=== PATIENT | female | born 2005 | race Caucasian/White ===

== ENCOUNTER 2023-12-08 19:40 | Inpatient (IN) | payer OTHER ==
[~2023-12-08] VITALS: Ht 177.8 cm; Wt 118.2 kg
[2023-12-08] VITALS (7 sets, daily range): BP systolic 127–140; BP diastolic 76–86; PULSE 88–107; TEMP 98–98.3
[~2023-12-08 19:40] MED LIST: MACROBID 1100 MG/CAP PO
--- NOTE | 2023-12-08 19:50 | NUR ---
Ambulatory to unit for labor assessment, accompanied by boyfriend. Oriented to room, monitor, plan of care. Pt reports "I've been having contractions for over 2 days, and I haven't been able to sleep." Pt reports "I was in the office on Thursday and he swept my membranes" When asked about LOF or vaginal bleeding, Pt reports "I had a gush of fluids when I was in the shower but I wasn't sure since I was in the shower. It feels like every time I have a ctx more fluid comes out. " Amniotrace negative with no color change. SVE 3-4 with small amount yellow/green tinged fluid noted on exam glove. Amniotrace to fluid on glove equivocal.
--- NOTE | 2023-12-08 20:35 | NUR ---
Off monitor, up to move around room until orders obtained.
[2023-12-08] MEDS ORDERED: LR 1,000 ML IV SCH (21:15)
[2023-12-08] MEDS ORDERED: LR & Oxytocin 500 ML IV SCH (21:15)
--- NOTE | 2023-12-08 21:30 | NUR ---
Pt to bathroom before being put back on the monitor.
[2023-12-08] MEDS ORDERED: Gentamicin/Sodium Chloride 100 ML IV ONE (22:15)
--- NOTE | 2023-12-08 22:18 | NUR ---
Pt requesting epidural. Anesthesia notified.
[2023-12-08 22:31] LABS: BASO % 0.3 % (0.0-2.0); EOS # 0.1 K/mm3 (0.0-0.7); EOS % 0.5 % (0.0-4.0); GRAN # 8.9 K/mm3 (1.4-6.5); GRAN % 74.9 % (42.2-75.2); HEMOGLOBIN 11.2 g/dl (12.0-15.0); LYMPH # 1.8 K/mm3 (1.2-3.4); LYMPH % 14.9 % (20.0-51.0); MEAN CELL VOLUME 83 fl (80.0-95.0); MEAN CORPUSCULAR HEMOGLOBIN 26 pg (26-32); MEAN CORPUSCULAR HGB CONC 32 g/dl (33.0-37.0); MEAN PLATELET VOLUME 9.1 fl (7.4-10.4); MONO % 8.3 % (1.7-9.3); PLATELET COUNT 244 K/mm3 (130-400); RED BLOOD COUNT 4.28 M/mm3 (4.10-5.30); REDCELL DISTRIBUTION WIDTH-CV 14.1 % (11.5-14.5)
[2023-12-08 22:32] LABS: HEMATOCRIT 35.6 % (35.0-45.0)
[2023-12-08] MEDS ORDERED: ROPivacaine PF 0.2% 200 ML IV ONE (22:37)
[2023-12-08] MEDS ORDERED: Ondansetron 4 MG/2 ML VIAL IV PRN (22:45)
[2023-12-08] MEDS ORDERED: diphenhydrAMINE 25 MG CAP PO PRN (22:45)
[2023-12-08] MEDS ORDERED: ePHEDrine 50 MG/10 ML VIAL IV PRN (22:45)
[2023-12-08] MEDS ORDERED: Naloxone 0.4 MG/ML VIAL IV PRN (22:45)
[2023-12-08] MEDS ORDERED: diphenhydrAMINE 50 MG/ML 1 ML VIAL IV PRN (22:45)
--- NOTE | 2023-12-08 22:45 | NUR ---
[employer] into room, for epidural placement. See anesthesia record. Pt assisted to sit on edge of bed. EFM tracing maternal heart rate.
[2023-12-09] VITALS (43 sets, daily range): BP systolic 113–157; BP diastolic 56–92; PULSE 77–120; TEMP 98.1–98.8
--- NOTE | 2023-12-09 02:50 | NUR ---
Pt reports 'large gush of fluid' Large amount of yellow/light green fluid without sediment noted on chux, SVE as noted.
[2023-12-09] MEDS ORDERED: Gentamicin/Sodium Chloride 50 ML IV SCH ×2 (04:00→06:17)
[2023-12-09] MEDS ORDERED: Witch Hazel 50% Pads Bulk TUB TP PRN (09:45)
[2023-12-09] MEDS ORDERED: Ibuprofen 600 MG TAB PO SCH ×2 (09:45→12:45)
[2023-12-09] MEDS ORDERED: Naloxone 0.4 MG/ML VIAL IV PRN (09:45)
[2023-12-09] MEDS ORDERED: Phenylephrine/Mineral Oil/Petrolatum 57 GM TUBE RC PRN (09:45)
[2023-12-09] MEDS ORDERED: Magnes Hydrox (MOM) 80 MG/ML 30 ML CUP PO PRN (09:45)
[2023-12-09] MEDS ORDERED: oxyCODONE 5 MG TAB PO PRN (09:45)
[2023-12-09] MEDS ORDERED: Acetaminophen 500 MG TAB PO SCH ×2 (09:45→12:45)
[2023-12-09] MEDS ORDERED: Loratadine 10 MG TAB PO PRN (09:45)
[2023-12-09] MEDS ORDERED: Measles/Mumps/Rubella Virus Vaccine Live w Diluent 0.5 ML VIAL SQ SCH (09:45)
[2023-12-09] MEDS ORDERED: Mag/Al Hydrox/Simeth Susp 30 ML CUP PO PRN (09:45)
--- NOTE | 2023-12-09 10:45 | NUR ---
0640 SVE PER THIS RN /0.DR LEWIS NOTIFIED.THIS RN BEGINS PUSHING WITH PT.GOOD MATERNAL EFFORT MADE. 0900 DR LEWIS BEDSIDE.DR LEWIS EDUCATES PT AND SPOUSE ON VACUUM EXTRACTION DELIVERY.PT VERBALIZES UNDERSTANDING.LABOR ROOM PREPPED AND TRANSFORMED INTO DELIVERY ROOM.ALL APPROPRIATE STAFF NOTIFIED. 09 VACUUM PLACED.VACUUM INCREASED WITH EACH CONTRACTION.VACUUM DECREASED AFTER CONTRACTION. 09 VACUUM EXTRACTION OF VIABLE FEMALE .MECONIUM STAIN NOTED.STRONG CRY NOTED AT DELIVERY. PLACED ON MATERNAL ABDOMEN.CORD CLAMPED AND CUT BY FATHER OF THE BABY.CORD GASES SENT TO LAB.INFANT CARES ASSUMED BY TYLER CASTILLO RN. 0918 OF INTACT PLACENTA.PITOCIN BOLUS INFUSING PER PROTOCOL.LOCHIA WITHIN NORMAL LIMITS. FUNDUS FIRM AT THE UMBILICUS.2ND DEGREE LACERATION REPAIRED BY DR LEWIS.TOTAL QBL FOR CASE 400ML.
--- NOTE | 2023-12-09 12:00 | NUR ---
THIS RN AT BEDSIDE.PT FULL FEELING OF LEGS RETURNED.PT HAS EATEN LUNCH AND DENIES REPORTS OF DIZZINESS AND LIGHTHEADEDNESS.USING THE MICHAEL STEDY, PT WHEELED INTO BATHROOM FOR PERICARE. MESH PANTIES AND PAD APPLIED.NEW GOWN PLACED.USING THE MICHAEL STEDY,PT WHEELED INTO ROOM 214.EDUCATION AND POC REVIEWED WITH PT AND SIGNIFICANT OTHER.PT VERBLIZES UNDERSTANDING.
[2023-12-09] MEDS ORDERED: Sennosides/Docusate 8.6-50 MG TAB PO SCH (17:00)
[2023-12-09] MEDS ORDERED: traZODone 50 MG TAB PO PRN (21:00)
[2023-12-10] VITALS: BP 123/69; PULSE 84; TEMP 98.1
[2023-12-10 08:15] VITALS: BP 117/70; PULSE 89; TEMP 98
--- NOTE | 2023-12-10 15:00 | NUR ---
PATIENT PROVIDED PUMP WITH INSTRUCTIONS PER REQUEST.
[2023-12-10 15:30] VITALS: BP 121/66; PULSE 78; TEMP 97.9
--- NOTE | 2023-12-10 15:30 | NUR ---
8ML COLOSTRUM COLLECTED AND LEFT AT BEDSIDE FOR NEXT FEEDING.
[2023-12-10 19:57] VITALS: BP 118/78; PULSE 80; TEMP 98.3
[2023-12-11 08:17] VITALS: BP 120/72; PULSE 74; TEMP 98
[2023-12-11] MEDS ORDERED: IBU600 MG PO (10:08)
== END 2023-12-11 14:40 | disposition home or self-care (01) | DRG 807 ==
LOC: LDRO 19:40 → OB 20:46 → LDR 20:46 → OB 12-09 12:00
PROVIDERS: ADMIT Obstetrics & Gynecology
PROC: 10D07Z6 Extraction of Products of Conception, Vacuum, Via Natural or Artificial Opening (ICD-10-PCS; principal; 2023-12-08)
PROC: 0KQM0ZZ Repair Perineum Muscle, Open Approach (ICD-10-PCS; 2023-12-08)
DX: O77.0 Labor and delivery complicated by meconium in amniotic fluid (principal); Z37.0 Single live birth; O42.92 Full-term premature rupture of membranes, unspecified as to length of time between rupture and onset of labor; Z3A.40 40 weeks gestation of pregnancy; O70.1 Second degree perineal laceration during delivery
CPT/HCPCS: J0290; J1580; J2590; J2795; J7120